=== PATIENT | male | born 1975 | race Caucasian/White ===

== ENCOUNTER 2025-07-27 11:51 | Emergency (ER) | payer BC, SELFPAY ==
--- NOTE | 2025-07-27 11:56 | EKG_ITS ---
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
--- NOTE | 2025-07-27 12:15 | XR_ITS ---
EXAMINATION: PA lateral chest 2 views TECHNIQUE: Upright PA lateral chest 2 views Date and time: July 27, 2025, 12:52 p.m. INDICATIONS: Chest pain swelling in the hands and feet today FINDINGS: Normal heart size No pneumonia or pulmonary edema. The osseous fractures are intact IMPRESSION: No pneumonia or pulmonary edema
--- NOTE | 2025-07-27 12:18 | PD.EDRME ---
Rapid Medical Screening Exam RME Arrival date/time: 07/27/25 11:51 50-year-old male presents to the emergency department for complaints of chest pain/chest pressure, indigestion today Chief Complaint: Chest Pain
[2025-07-27 12:20] VITALS: BP 175/123; BP 177/134; PULSE 87; RESP 18; TEMP 36.7; O2SAT 96; BMI 39.0
[2025-07-27 13:13] LABS: Basophils # (Auto) 0.0 Thou/mm3 (0.0-0.2); Basophils % (Auto) 0 % (0-2.5); Eosinophils # (Auto) 0.1 Thou/mm3 (0.0-0.5); Eosinophils % (Auto) 1 % (0-10); Hematocrit 46.9 % (41.0-53.0); Hemoglobin 16.3 g/dL (13.5-16.0); Immature Granulocytes Auto 0.05 Thou/mm3 (0.00-0.00); Lymphocytes # (Auto) 1.6 Thou/mm3 (1.0-4.8); Lymphocytes % (Auto) 18 % (10-50); Mean Corpuscular HGB Conc 34.8 g/dl (31.0-37.0); Mean Corpuscular Hemoglobin 31.6 pg (25.0-35.0); Mean Corpuscular Volume 91 fL (80-100); Monocytes # (Auto) 0.5 Thou/mm3 (0.0-0.8); Monocytes % (Auto) 6 % (0-12); Neutrophils # (Auto) 6.7 Thou/mm3 (1.8-7.7); Neutrophils % (Auto) 74 % (37-80); Nucleated Red Blood Cell # 0.00 Thou/mm3 (0.00-0.00); Nucleated Red Blood Cell % 0 /100 WBC (0); Platelet Count 265 Thou/mm3 (140-440); RDW Standard Deviation 44.6 fL (35.1-43.9); Red Blood Count 5.16 Miln/mm3 (4.50-5.90); White Blood Count 9.0 Thou/mm3 (3.8-10.6)
[2025-07-27 13:25] LABS: INR 1.0 (0.9-1.3); Partial Thromboplastin Time 27.5 Seconds (22.0-36.0); Prothrombin Time 10.8 Seconds (9.0-12.2)
[2025-07-27 13:27] LABS: B-Type Natriuretic Peptide < 20 pg/mL (0-100)
[2025-07-27 13:28] LABS: Alanine Aminotransferase 68 U/L (10-49); Albumin, Serum 5.1 gm/dL (3.5-5.0); Albumin/Globulin Ratio 2.6 (1.2-2.2); Alkaline Phosphatase 54 U/L (46-116); Anion Gap 12 (7-16); Aspartate Amino Transferase 66 U/L (0-34); BUN/Creatinine Ratio 5 Ratio (12-20); Bilirubin,Total 0.8 mg/dL (0.3-1.2); Blood Urea Nitrogen 6 mg/dL (9-23); Calcium 9.3 mg/dL (8.3-10.6); Calcium (Corrected) 9.3 mg/dL (8.5-10.1); Carbon Dioxide 22.1 mMol/L (20.0-31.0); Chloride 102 mMol/L (98-107); Creatinine (Component) 1.1 mg/dL (0.6-1.3); Estimated Creatinine Clearance 109.1 mL/min (>60); Globulin 2.0 gm/dL (2.3-3.5); Glucose 124 mg/dL (74-106); Lipase 39 U/L (12-53); Magnesium 2.1 mg/dL (1.6-2.6); Osmolality,Calculated 270 (275-295); Potassium 4.0 mMol/L (3.4-5.1); Sodium 136 mMol/L (136-145); Total Protein 7.1 gm/dL (5.7-8.2); Troponin I < 0.002 ng/mL (0.0-0.045); eGFR > 60 See Note
[2025-07-27 15:38] LABS: Troponin I < 0.002 ng/mL (0.0-0.045)
--- NOTE | 2025-07-27 16:05 | EDNOTE_ITS ---
ED Chest Pain RME/HPI General Chief Complaint: Chest Pain Stated Complaint: Chest pain, numbness and tingling Time Seen by Provider: 07/27/25 15:44 Source: patient Arrival date/time: 07/27/25 11:51 Mode of arrival: ambulatory Limitations: no limitations RME / HPI RME / HPI narrative: 07/27/25 11:51 50-year-old male presents to the emergency department for complaints of chest pain/chest pressure, indigestion today Dr. Jett evaluation. Patient is a 50-year-old male that is in the Emergency Department concerns for chest pain. Patient states that he was at home when he started feeling retrosternal chest pain. Then started feeling flushed and did not feel well. Denies fevers chills cough runny nose abdominal pain dysuria hematuria melena bloody stool drugs alcohol smoking. Patient also developed a rash that was red and itchy on his chest, back and legs. Denies difficulty breathing. Patient has been able to swallow multiple bottles of water since he arrived initially felt nauseous did not vomit symptoms resolved on their own. No abdominal pain. Has an anaphylactic reaction to penicillins, sulfa. Has had a bad reaction to hydrochlorothiazide. Patient takes metoprolol and losartan. Denies any new medications, exposure to animals, new foods. Patient states that he just recently returned from [employer]. 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 Denies any new exposures. Related Data Previous Rx's ?Medication ?Instructions ?Recorded epinephrine 0.3 mg/0.3 mL 0.3 ml subcut .every 5 mins PRN 07/27/25 injection, auto-injector (EpiPen hypersensitivity reac tion #2 ea 2-Evangelist) Allergies Allergy/AdvReac Type Severity Reaction Status Date / Time hydrochlorothiazide Allergy Severe Rash Verified 07/27/25 16:22 Penicillins Allergy Unknown UNKNOWN Verified 07/27/25 16:22 RXN TO PCN'S Sulfa (Sulfonamide Allergy Verified 07/27/25 16:22 Antibiotics) ED Exam General Limitations: Present no limitations General appearance: Present alert and in no apparent distress Head Head exam: Present atraumatic and normocephalic Eye Eye exam: Present normal appearance and PERRL ENT ENT exam: Present normal exam and normal oropharynx Neck Neck exam: Present normal inspection and full ROM Chest Chest inspection: Present normal inspection and symmetric chest wall rise Respiratory Respiratory exam: Absent respiratory distress Cardiovascular Cardiovascular exam: Present regular rate Abdominal Exam Abdominal exam: Present soft; Absent distention, tenderness or guarding Extremities Exam Extremities exam: Present normal inspection Neurological Exam Neurological exam: Present alert and other (No focal neurodeficits) Psychiatric Psychiatric exam: Present normal affect and normal mood Skin Skin exam: Present warm, dry, intact and rash (Erythematous maculopapular rash appreciated on patient's bilateral flanks, back and bilateral lower extremities. No lesions in the perineum. No lesions in the oropharynx. No lesions on the palms or soles. Patient with swelling bilateral hands and feet. Nonpitting. 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 Care 07/27/25 12:15 Active EKG (ED ONLY) *Do not use* NOW Care 07/27/25 11:56 Completed EKG (ED Only) Stat Exams 07/27/25 11:56 Draft US abdomen limited Stat Exams 07/27/25 16:21 Completed XR chest 2V Stat Exams 07/27/25 12:15 Completed B-Type Natriuretic Peptide Stat Lab 07/27/25 12:50 Completed BNP [B-Type Natriuretic Peptide] Stat Lab 07/27/25 17:11 Completed CBC Stat Lab 07/27/25 12:50 Completed Comprehensive Metabolic Panel Stat Lab 07/27/25 12:50 Completed Drug Screen,Urine Stat Lab 07/27/25 16:38 Completed Lipase Stat Lab 07/27/25 12:50 Completed Magnesium Stat Lab 07/27/25 12:50 Completed Partial Thromboplastin Time Stat Lab 07/27/25 12:50 Completed Prothrombin Time with INR Stat Lab 07/27/25 12:50 Completed Troponin I Stat Lab 07/27/25 12:50 Completed Troponin I Stat Lab 07/27/25 15:14 Completed UA, C/S IF [Urinalysis, C/S if Indicated] Stat Lab 07/27/25 16:38 Completed Aspirin Chew Med 07/27/25 16:07 Discontinued 81 mg PO X1 ONE DiphenhydrAMINE INJ [Benadryl Inj] Med 07/27/25 16:20 Discontinued 25 mg IVP X1 ONE Famotidine [Pepcid] Med 07/27/25 18:11 Once 20 mg PO X1 ONE Lidocaine 2% Viscous [Xylocaine 2% Viscous] Med 07/27/25 16:07 Discontinued 15 ml PO X1 ONE MethylPREDNISolone.* [SoluMEDROL Inj] Med 07/27/25 16:20 Discontinued 125 mg IVP X1 ONE Ringers Lactated 500 ml [Lactated Ringers] 500 ml Med 07/27/25 18:08 Active IV 500 mls/hr mg Hyd/Al Hyd/Sasha Susp [Maalox Susp] Med 07/27/25 16:07 Discontinued 30 ml PO X1 ONE Vital Signs Vital signs: Vital Signs Temperature 98.1 F 07/27/25 12:20 Pulse Rate 87 07/27/25 12:20 Respiratory Rate 18 07/27/25 12:20 Blood Pressure 177/134 H 07/27/25 12:20 Pulse Oximetry (%) 96 07/27/25 12:20 Oxygen Delivery Method Room Air 07/27/25 12:20 Chest Pain MDM Narrative MDM Narrative:: Patient is a 50-year-old male is in the emerged from concerns for chest pain. Vital signs and exam as listed. Concern for ACS arrhythmia electrolyte abnormality viral syndrome pneumonia among others. Also concern for pancrea titis among others. Prior provider evaluated patient. Ordered labs, EKG, chest x-ray offered medication for symptom relief. EKG performed at 12:14 PM today notable for sinus rhythm, normal intervals, non specific T wave changes, not a cardiac alert. Chest x-ray unremarkable. Repeat troponin not elevated. Lipase normal. Went to reevaluate patient, patient states that his symptoms are the same. Provided patient with aspirin. Also is concerned that he developed a rash on his abdomen that pruritic as well as swelling of bilateral hands and bilateral feet. Patient states this has not happened before. Has not been exposed to any new detergents foods however he recently did return back from [place]. No sick contacts. Patient has an anaphylactic reaction to penicillin also allergic to sulfa. Patient has not taken any of these medications recently. Patient is also allergic to hydrochlorothiazide. Patient takes losartan and metoprolol at home. Has been doing fine also takes a supplement with milk thistle that he has been taking for 2 weeks. His abdomen is soft nondistended nontender. He is complaining of epigastric pain. I ordered right upper quadrant ultrasound 5:30p reevaluated patient, rash is mildly improved as well as the swelling in his fingers. BNP not elevated lipase normal, right upper quadrant ultrasound with evidence of fatty liver otherwise no abnormalities. Will prescribe patient with an EpiPen. Advised him to see an contract specialist. To well as well as close and linens with hypoallergenic detergent. Also advised patient to establish care with a manager audio as he may benefit from a stress test. Patient is hemodynamically stable not in any distress, not in respiratory distress no wheezes or rhonchi he is satting well on room air not tachypneic, symptoms improved. All questions answered Patient data External records reviewed:: None Clinical information provided by:: patient and family Social determinants that could affect healthcare access:: none Patient has the following chronic illnesses:: See MDM How is presenting disease/condition affected by chronic disease/condition?: uneffected by Evaluation data The following diagnostics were reviewed and interpreted by me:: lab results, radiology exam(s) and EKG tracing(s) Lab and/or radiology exams considered but not ordered:: None Interpretation Summary: See MDM Medications / Prescriptions Medications or Prescriptions considered but not ordered:: None Medication administrations:: Medication Administration History Famotidine (Famotidine 20 Mg Tablet) 20 mg PO X1 ONE Stop: 07/27/25 18:12 Lactated Ringer's (Lactated Ringers) 500 mls @ 500 mls/hr IV .Q1H ONE Stop: 07/27/25 19:07 Discontinued Medications Al Hydrox/Mg Hydrox/Simethicone (Mg Hyd/Al Hyd/Sasha (Maalox Reg) Susp 30 Ml Udc) 30 ml PO X1 ONE Stop: 07/27/25 16:08 Last Admin: 07/27/25 16:41 Dose: Not Given Documented By: Non-Admin Reason: Discontinued Aspirin (Aspirin 81 Mg Chew) 81 mg PO X1 ONE Stop: 07/27/25 16:08 Last Admin: 07/27/25 17:01 Dose: 81 mg Documented By: Diphenhydramine HCl (Diphenhydramine Inj 50 Mg/Ml Vial) 25 mg IVP X1 ONE Stop: 07/27/25 16:21 Last Admin: 07/27/25 17:10 Dose: 25 mg Documented By: Lidocaine HCl (Lidocaine Viscous 2% 15 Ml Udc) 15 ml PO X1 ONE Stop: 07/27/25 16:08 Last Admin: 07/27/25 16:41 Dose: Not Given Documented By: DOMINIK Non-Admin Reason: Discontinued Methylprednisolone Sodium Succinate (Methylprednisolone Sod Succ 62.5 Mg/Ml 2ml Vial) 125 mg IVP X1 ONE Stop: 07/27/25 16:21 Last Admin: 07/27/25 17:11 Dose: 125 mg Documented By: DOMINIK See MDM Consultations Consultation(s) initiated? (list below): No Diagnosis Chest Pain Differential Diagnosis: other (See MDM) Most likely diagnosis given after review of the tests above:: Rash, chest pain, hand swelling, edema, allergic reaction Admission Indicated Admission indicated?: not indicated Admission Request Was there a request for admission?: No Disposition Plan Disposition Plan: Discharge Discharge Attestation Discharge Attestation: The patient and all family members were given an opportunity to ask questions and understood the discharge instructions. Discharge instructions specifically effects, indications for sooner follow up or return to the emergency department, and the expected course of current diagnosis. Patient condition: Stable Critical Care Time Critical Care Time Critical Care Time: Yes Total Critical Care Time (min.): 45 Attestation: Due to a high probability of clinically significant, life threatening deterioration, the patient required my highest level of preparedness to intervene emergently and I personally spent this critical care time directly and personally managing the patient. This critical care time included obtaining a history; examining the patient; pulse oximetry; ordering and review of studies; arranging urgent treatment with development of a management plan; evaluation of patient's response to treatment; frequent reassessment; and, discussions with other providers. This critical care time was performed to assess and manage the high probability of imminent, life-threatening deterioration that could result in multi-organ failure. It was exclusive of separately billable procedures and treating other patients and teaching time. Please see MDM section and the rest of the note for further information on patient assessment and treatment. Discharge Plan Plan Patient Disposition: HOME (Self Care) Prescriptions/Referrals Prescriptions/Med Rec: New epinephrine [EpiPen 2-Evangelist] 0.3 mg/0.3 mL auto-injector 0.3 ml subcut .every 5 mins PRN (Reason: hypersensitivity reaction) Qty: 2 0RF Referrals: Nicol Maza FNP [Primary Care Provider] - In 1 week Problem List Clinical Impression: Allergic reaction, Angioedema, Chest pain Patient/Caregiver Discharge Instructions Education Materials: ED Angioedema, ED Chest Pain, Uncertain Cause Additional Instructions: Your workup today was reassuring. Your cardiac enzyme measured twice was not elevated your EKG did not show any evidence that you are having a cardiac event. Your liver function test were mildly elevated, your right upper quadrant ultrasound showed that you have fatty liver. Chest x-ray was normal. Given your rash being itchy and your history of allergic reaction some concern that you had an allergic reaction, unclear what the etiology is. I recommend that you see an contract specialist this week. Wash all your clothes and linens with hypoallergenic detergent. I also recommend that you establish care with a manager audio as you may benefit from a stress test. Please return to the emergency department immediately if you have any worsening symptoms or symptoms of concern. Print Language: Dominican Stand Alone Forms: [facility] Award Info., Patient Portal Info Letter
--- NOTE | 2025-07-27 16:21 | XR_ITS ---
Examination: Abdomen sonogram, Limited Date and time of exam: July 27, 2025, 1633 hours INDICATIONS: Right lower abdominal pain this month Technique: Real-time mcneal scale transabdominal sonographic images of the upper abdomen obtained. Findings: Normal gallbladder. Normal common bile duct 0.5 cm Pancreatic head 3.1 cm Liver 19.5 cm fatty infiltration no focal liver lesions Normal hepatopetal portal venous flow Patent IVC IMPRESSION: Normal gallbladder Normal common bile duct Moderate hepatomegaly no focal liver lesions
[2025-07-27 16:24] VITALS: BP 166/100; PULSE 87; RESP 15; TEMP 36.3; O2SAT 99
[2025-07-27 16:44] LABS: Collection Type, Urine Clean Catch; Squamous Epithelial Cell,Urine 0 /hpf (0-5)
[2025-07-27 16:58] LABS: Amphetamine/Methamp Scrn,U Negative (Negative); Barbiturate Screen,Urine Negative (Negative); Benzodiazepines Screen,Urine Negative (Negative); Benzoylecgonine Screen, Ur Negative (Negative); Fentanyl Screen,Urine Negative (Negative); Opiate Screen,Urine Negative (Negative); THC Screen,Urine Negative (Negative)
[2025-07-27 16:59] LABS: Bacteria,Urine Rare; Bilirubin,Urine Negative (Negative); Blood,Urine Negative (Negative); Clarity,Urine Clear (Clear/Hazy); Color,Urine Lt-Yellow (Lt Yel-Yel); Culture Indicated,Urine Not Indicated; Glucose, Urine Negative (Negative); Ketones,Urine Negative (Negative); Leukocyte Esterase,Urine Negative (Negative); Nitrite,Urine Negative (Negative); PH,Urine 6.0 (5.0-7.0); Protein,Urine Negative (Neg - Trace); RBC,Urine 1 /hpf (0-3); Specific Gravity,Urine 1.009 (1.001-1.035); Urobilinogen,Urine Negative mg/dL (0.0-1.0); WBC,Urine 1 /hpf (0-5)
[2025-07-27] MEDS: ASPIRIN 81 MG CHEW PO (17:01)
[2025-07-27] MEDS: MethylPREDNISolone SOD SUCC 62.5 MG/ML 2ML VIAL 125 MG IVP (17:11)
[2025-07-27 17:29] VITALS: BP 161/98; PULSE 88; RESP 18; TEMP 36.7; O2SAT 98
[2025-07-27 17:55] LABS: B-Type Natriuretic Peptide < 20 pg/mL (0-100)
[2025-07-27 18:29] VITALS: BP 150/93; PULSE 91; RESP 20; TEMP 36.8; O2SAT 96
[2025-07-27] MEDS: FAMOTIDINE 20 MG TABLET PO (18:30)
[2025-07-27] MEDS: RINGERS LACTATED 1000 ML 500 ML IV (18:30)
[2025-07-27 19:08] VITALS: BP 147/88; PULSE 83; RESP 20; O2SAT 94
== END 2025-07-27 19:16 | disposition home or self-care (01) ==
PROVIDERS: Nurse Practitioner Primary Care; Emergency Provider Emergency Medicine
DX: T78.2XXA Anaphylactic shock, unspecified, initial encounter (principal); T78.3XXA Angioneurotic edema, initial encounter; L29.9 Pruritus, unspecified
CPT/HCPCS: 36415; 71046; 76705; 80053; 80307; 81001; 83690; 83735; 83880; 84484; 85025; 85610; 85730; 93005; 96361; 96374; 96375; 99285; J1200; J2919; J7120; A9270